=== PATIENT | female | born 1950 | race Caucasian/White ===

== ENCOUNTER 2023-12-19 16:25 | Emergency (ER) | payer OTHER, SELFPAY ==
[2023-12-19] VITALS (18 sets, daily range): BP systolic 152–202; BP diastolic 71–98; PULSE 86–116; RESP 12–20; TEMP 37; O2SAT 97–100; BMI 17.6
--- NOTE | 2023-12-19 16:39 | DI.CT.S_ITS ---
PROCEDURE: CT TRAUMA CHEST ABDOMEN PELVIS INDICATIONS: Trauma, pain Chest: Cardiovascular: Heart size is normal. No evidence of pulmonary embolism, aortic aneurysm or dissection. Lungs and pleural spaces: Right middle lobe mass lesion measures 2.0 x 0.8 cm. Biapical pulmonary scarring. Lymph nodes: No mediastinal, hilar or axillary adenopathy. Mediastinum: Unremarkable. No hiatal hernia. Thyroid within normal limits. Chest Wall and Bones: T4 wedge-shaped compression fracture with 10 percent anterior height loss. No retropulsed fracture fragment Abdomen and Pelvis: Liver: Normal in size and attenuation. No contour deformity present. Biliary system: No calcified cholelithiasis or pericholecystic inflammation. No intra or extrahepatic bile duct dilatation. Pancreas: Unremarkable without mass or inflammation evident. Spleen: Normal in size and density. Adrenals: Normal morphology and density. Reproductive system: Unremarkable as visualized. Urinary system: Normal renal size and attenuation. No renal calculi, hydronephrosis, or solid mass present. Urinary bladder unremarkable. Gastrointestinal system: The bowel is unremarkable with no evidence of bowel obstruction or inflammation. The stomach appears unremarkable. Large fecal bolus in the rectum Appendix: No findings to suggest acute appendicitis. Lymph nodes: No mesenteric or retroperitoneal adenopathy. Peritoneal spaces: No free air. No free fluid. Vasculature: The IVC, aorta and iliac vasculature are unremarkable. Abdominal wall: Abdominal wall intact without evidence of ventral or inguinal hernias. Musculoskeletal: Normal bone mineralization. No acute fractures. IMPRESSION: 1. T4 wedge-shaped compression fracture, uncertain age. 2. Incidental right middle lobe 2 cm nodule. Consider 3 month follow-up and/or PET-CT 3. No evidence of fracture or visceral injury in the abdomen or pelvis. Approved by: Canelo Beard M.D. on 12/19/2023 at 17:02
--- NOTE | 2023-12-19 16:40 | DI.CT.S_ITS ---
PROCEDURE: CT CERVICAL SPINE WO CON INDICATIONS: fall with head injury TECHNIQUE: Noncontrast 3 mm thick sections acquired from the skull base to the T4 level. Sagittal and coronal reformats were then constructed. For radiation dose reduction, the following was used: automated exposure control, adjustment of mA and/or kV according to patient size. COMPARISON: None. FINDINGS: Image quality: Excellent. Bones: No fractures or dislocations. Visualized superior ribs are intact. Soft tissues: Prevertebral soft tissues are normal in thickness. No paravertebral hematomas. No apical pneumothoraces. IMPRESSION: No displaced fracture or traumatic subluxation. Approved by: Canelo Beard M.D. on 12/19/2023 at 17:15
--- NOTE | 2023-12-19 16:40 | DI.CT.S_ITS ---
PROCEDURE: CT HEAD/BRAIN WO CON INDICATIONS: fall hit head TECHNIQUE: Noncontrast 4.5 mm thick angled axial sections acquired from the foramen magnum to the vertex, with coronal and sagittal reformats. For radiation dose reduction, the following was used: automated exposure control, adjustment of mA and/or kV according to patient size. COMPARISON: None. FINDINGS: Image quality: Diagnostic. CSF spaces: Basal cisterns are patent. No extra-axial fluid collections. Ventricles are normal in size and shape. Brain: No midline shift. No intracranial masses or hemorrhage. Damon-white matter interface is normal. Atrophy and multifocal white matter chronic ischemic change Skull and face: Calvarium and visualized facial bones are intact, without suspicious lesions. Sinuses: Visualized sinuses and mastoids are clear. IMPRESSION: No acute intracranial pathology. Approved by: Canelo Beard M.D. on 12/19/2023 at 17:07
[2023-12-19 16:52] LABS: Add Manual Diff / Slide Review NO; Basophils Absolute Auto 0 /uL (0-100); Basophils Percent Auto 0.7 % (0-2); Eosinophils Absolute Auto 100 /uL (0-450); Hematocrit 41.7 % (36-46); Lymphocytes Absolute Auto 1100 /uL (1100-4500); Lymphocytes Percent Auto 21.9 % (25-40); Mean Corpuscular HGB Conc 33.5 % (30-36); Mean Corpuscular Hemoglobin 30.6 PG (26-34); Mean Corpuscular Volume 91.3 fL (80-100); Monocytes Absolute Auto 800 /uL (0-900); Monocytes Percent Auto 15.5 % (3-14); Neutrophils Absolute Auto 3100 /uL (1500-7000); Neutrophils Percent Auto 60.9 % (50-75); Platelet Count 278 X10^3/uL (150-400); Red Blood Cell Count 4.57 X10^6/uL (4.0-5.2); Red Cell Distribution Width 12.9 % (11.6-14.8); White Blood Cell Count 5.2 X10^3/uL (4.5-11.0)
--- NOTE | 2023-12-19 17:03 | ED_ITS ---
HPI - General Adult <Kal Griffin DO - Last Filed: 12/20/23 06:57> General Chief complaint: Trauma Stated complaint: Fall, Head/Back injury Time Seen by Provider: 12/19/23 16:38 Source: patient Mode of arrival: Ambulatory Limitations: no limitations History of Present Illness HPI narrative: Patient is a 73-year-old female. Not on blood thinners. Arrived by private vehicle for evaluation injuries sustained when she fell. She states she was trying to take a picture. Was leaning forward when she lost her balance. Fell backwards. Did hit her head, neck, upper back. Did not lose consciousness. Fell greater than 6 ft. No lower extremity injuries. No pelvis injuries. No upper extremity injuries although she is having some left upper shoulder pain. Is having chest pain with deep inspiration. Related Data Allergies Allergy/AdvReac Type Severity Reaction Status Date / Time Sulfa (Sulfonamide Allergy Rash Verified 12/19/23 16:35 Antibiotics) Review of Systems <Kal Griffin DO - Last Filed: 12/20/23 06:57> Review of Systems ROS Unobtainable: All systems reviewed & are unremarkable except as noted in HPI and below Exam <Kal Griffin DO - Last Filed: 12/20/23 06:57> Initial Vital Signs Initial Vital Signs: Vital Signs Temperature 98.6 F 12/19/23 16:29 Pulse Rate 116 H 12/19/23 16:29 Respiratory Rate 18 12/19/23 16:29 Blood Pressure 181/87 H 12/19/23 16:29 Pulse Oximetry 98 12/19/23 16:29 Oxygen Delivery Method Room Air 12/19/23 16:29 Const General: cooperative and No ill appearing Resp Effort & Inspection: normal respiratory effort Auscultation: clear to auscultation bilaterally Cardio Rate: regular rate Rhythm: regular rhythm GI Inspection: normal to inspection and non-distended Palpation: soft and No tender Back/Spine/Pelvis Cervical Spine: cervical spinal tenderness Thoracic/Lumbar Spine: thoracic spinal tenderness Skin Other: Skin abrasions over left shoulder. Scalp abrasion. Neuro General: patient alert, patient awake, patient oriented x3 and moves all extremities Extrem Other: No gross deformities. Moves all 4 extremities. Has some discomfort with movement of the left shoulder because of some left-sided paraspinal cervical tenderness. Pelvis is stable. <Tyler Kenyon MD - Last Filed: 12/21/23 12:36> Initial Vital Signs Initial Vital Signs: Vital Signs Temperature 98.6 F 12/19/23 16:29 Pulse Rate 116 H 12/19/23 16:29 Respiratory Rate 18 12/19/23 16:29 Blood Pressure 181/87 H 12/19/23 16:29 Pulse Oximetry 98 12/19/23 16:29 Oxygen Delivery Method Room Air 12/19/23 16:29 Scores <Kal Griffin DO - Last Filed: 12/20/23 06:57> [place] CT Head Rule Age <16 years old: No Patient on blood thinners: No Seizure after injury: No Exclusion: Patient NOT Excluded, Proceed to next steps GCS < 15 at 2 hr post trauma: No Suspected open or depressed skull fracture: No Any sign of basilar skull fracture (hemotympanum, raccoon eyes, Stepehns's sign, CSF gabriella-/rhinorrhea): No Two or more episodes of vomiting: No Age greater or equal to 65 years: Yes Retrograde amnesia to the event greater or equal to 30 min: No Dangerous Mechanism (pedestrian vs. mv, occupant ejected from mv, fall from >3 ft or > 5 stairs): Yes Recommendation: Consider CT. The [place] Head CT Rule cannot rule out need for Imaging. GCS Scarlett coma scale eye opening: Spontaneous [place] coma scale verbal response: Orientated [place] coma scale motor response: Obey commands [place] coma scale total score: 15 Nexus Score for C-Spine Focal Neurologic deficit present: No Midline spinal tenderness present: Yes Altered level of conciousness present: No Intoxication present: No Distracting Injury Present: No Nexus Criteria for C-spine: 1 <Tyler Kenyon MD - Last Filed: 12/21/23 12:36> [place] CT Head Rule Exclusion: Patient NOT Excluded, Proceed to next steps Recommendation: Consider CT. The [place] Head CT Rule cannot rule out need for Imaging. GCS [place] coma scale total score: 15 Nexus Score for C-Spine Nexus Criteria for C-spine: 1 Course <Kal Griffin DO - Last Filed: 12/20/23 06:57> Orders Ordered: ED Orders 12/19/23 16:39 CT Trauma Chest Abdomen Pelvis Stat 12/19/23 16:40 CT cervical spine wo con Stat CT head/brain wo con Stat 12/19/23 16:46 Complete Blood Count AUTO DIFF Stat Comprehensive Metabolic Panel Stat Lipase Stat 12/19/23 18:00 Urine Microscopic Stat Vital Signs Vital signs: Vital Signs - 8 hr 12/19/23 16:29 12/19/23 16:39 12/19/23 16:39 Temperature 98.6 F Temperature [1639] 98.6 F Pulse Rate 116 H 116 H Pulse Rate [1639] 97 H Respiratory Rate 18 Respiratory Rate [1639] 20 Blood Pressure 181/87 H Blood Pressure [1639] 172/81 H Pulse Oximetry 98 99 Pulse Oximetry [1639] 98 Oxygen Delivery Method Room Air Oxygen Delivery Method [1639] Room Air 12/19/23 16:40 12/19/23 16:40 12/19/23 16:46 Temperature Temperature [1639] Pulse Rate 113 H Pulse Rate [1639] Respiratory Rate 14 Respiratory Rate [1639] Blood Pressure 194/98 H 202/95 H Blood Pressure [1639] Pulse Oximetry 99 Pulse Oximetry [1639] Oxygen Delivery Method Oxygen Delivery Method [1639] 12/19/23 16:46 12/19/23 16:50 12/19/23 16:50 Temperature Temperature [1639] Pulse Rate 102 H 100 H Pulse Rate [1639] Respiratory Rate 18 Respiratory Rate [1639] Blood Pressure 172/81 H Blood Pressure [1639] Pulse Oximetry 100 98 Pulse Oximetry [1639] Oxygen Delivery Method Oxygen Delivery Method [1639] 12/19/23 16:55 12/19/23 16:55 12/19/23 17:14 Temperature Temperature [1639] Pulse Rate 102 H 107 H Pulse Rate [1639] Respiratory Rate Respiratory Rate [1639] Blood Pressure 178/86 H Blood Pressure [1639] Pulse Oximetry 99 Pulse Oximetry [1639] Oxygen Delivery Method Oxygen Delivery Method [1639] 12/19/23 17:17 12/19/23 17:17 12/19/23 17:20 Temperature Temperature [1639] Pulse Rate 105 H Pulse Rate [1639] Respiratory Rate 13 Respiratory Rate [1639] Blood Pressure 164/79 H 169/80 H Blood Pressure [1639] Pulse Oximetry 100 Pulse Oximetry [1639] Oxygen Delivery Method Oxygen Delivery Method [1639] 12/19/23 17:20 12/19/23 17:30 12/19/23 17:30 Temperature Temperature [1639] Pulse Rate 102 H 96 H Pulse Rate [1639] Respiratory Rate 12 14 Respiratory Rate [1639] Blood Pressure 156/71 H Blood Pressure [1639] Pulse Oximetry 99 97 Pulse Oximetry [1639] Oxygen Delivery Method Oxygen Delivery Method [1639] 12/19/23 18:00 12/19/23 18:00 12/19/23 18:30 Temperature Temperature [1639] Pulse Rate 92 H 90 Pulse Rate [1639] Respiratory Rate 17 18 Respiratory Rate [1639] Blood Pressure 152/78 H Blood Pressure [1639] Pulse Oximetry 98 98 Pulse Oximetry [1639] Oxygen Delivery Method Oxygen Delivery Method [1639] 12/19/23 18:30 12/19/23 19:13 12/19/23 19:17 Temperature Temperature [1639] Pulse Rate 94 H 95 H Pulse Rate [1639] Respiratory Rate Respiratory Rate [1639] Blood Pressure 158/75 H Blood Pressure [1639] Pulse Oximetry 98 100 Pulse Oximetry [1639] Oxygen Delivery Method Oxygen Delivery Method [1639] 12/19/23 19:18 Temperature Temperature [1639] Pulse Rate Pulse Rate [1639] Respiratory Rate Respiratory Rate [1639] Blood Pressure 194/91 H Blood Pressure [1639] Pulse Oximetry Pulse Oximetry [1639] Oxygen Delivery Method Oxygen Delivery Method [1639] <Tyler Kenyon MD - Last Filed: 12/21/23 12:36> Orders Ordered: ED Orders 12/19/23 16:39 CT Trauma Chest Abdomen Pelvis Stat 12/19/23 16:40 CT cervical spine wo con Stat CT head/brain wo con Stat 12/19/23 16:46 Complete Blood Count AUTO DIFF Stat Comprehensive Metabolic Panel Stat Lipase Stat 12/19/23 18:00 Urine Microscopic Stat Vital Signs Vital signs: Vital Signs - 8 hr 12/19/23 16:29 12/19/23 16:39 12/19/23 16:39 Temperature 98.6 F Temperature [1639] 98.6 F Pulse Rate 116 H 116 H Pulse Rate [1639] 97 H Respiratory Rate 18 Respiratory Rate [1639] 20 Blood Pressure 181/87 H Blood Pressure [1639] 172/81 H Pulse Oximetry 98 99 Pulse Oximetry [1639] 98 Oxygen Delivery Method Room Air Oxygen Delivery Method [1639] Room Air 12/19/23 16:40 12/19/23 16:40 12/19/23 16:46 Temperature Temperature [1639] Pulse Rate 113 H Pulse Rate [1639] Respiratory Rate 14 Respiratory Rate [1639] Blood Pressure 194/98 H 202/95 H Blood Pressure [1639] Pulse Oximetry 99 Pulse Oximetry [1639] Oxygen Delivery Method Oxygen Delivery Method [1639] 12/19/23 16:46 12/19/23 16:50 12/19/23 16:50 Temperature Temperature [1639] Pulse Rate 102 H 100 H Pulse Rate [1639] Respiratory Rate 18 Respiratory Rate [1639] Blood Pressure 172/81 H Blood Pressure [1639] Pulse Oximetry 100 98 Pulse Oximetry [1639] Oxygen Delivery Method Oxygen Delivery Method [1639] 12/19/23 16:55 12/19/23 16:55 12/19/23 17:14 Temperature Temperature [1639] Pulse Rate 102 H 107 H Pulse Rate [1639] Respiratory Rate Respiratory Rate [1639] Blood Pressure 178/86 H Blood Pressure [1639] Pulse Oximetry 99 Pulse Oximetry [1639] Oxygen Delivery Method Oxygen Delivery Method [1639] 12/19/23 17:17 12/19/23 17:17 12/19/23 17:20 Temperature Temperature [1639] Pulse Rate 105 H Pulse Rate [1639] Respiratory Rate 13 Respiratory Rate [1639] Blood Pressure 164/79 H 169/80 H Blood Pressure [1639] Pulse Oximetry 100 Pulse Oximetry [1639] Oxygen Delivery Method Oxygen Delivery Method [1639] 12/19/23 17:20 12/19/23 17:30 12/19/23 17:30 Temperature Temperature [1639] Pulse Rate 102 H 96 H Pulse Rate [1639] Respiratory Rate 12 14 Respiratory Rate [1639] Blood Pressure 156/71 H Blood Pressure [1639] Pulse Oximetry 99 97 Pulse Oximetry [1639] Oxygen Delivery Method Oxygen Delivery Method [1639] 12/19/23 18:00 12/19/23 18:00 12/19/23 18:30 Temperature Temperature [1639] Pulse Rate 92 H 90 Pulse Rate [1639] Respiratory Rate 17 18 Respiratory Rate [1639] Blood Pressure 152/78 H Blood Pressure [1639] Pulse Oximetry 98 98 Pulse Oximetry [1639] Oxygen Delivery Method Oxygen Delivery Method [1639] 12/19/23 18:30 12/19/23 19:13 12/19/23 19:17 Temperature Temperature [1639] Pulse Rate 94 H 95 H Pulse Rate [1639] Respiratory Rate Respiratory Rate [1639] Blood Pressure 158/75 H Blood Pressure [1639] Pulse Oximetry 98 100 Pulse Oximetry [1639] Oxygen Delivery Method Oxygen Delivery Method [1639] 12/19/23 19:18 Temperature Temperature [1639] Pulse Rate Pulse Rate [1639] Respiratory Rate Respiratory Rate [1639] Blood Pressure 194/91 H Blood Pressure [1639] Pulse Oximetry Pulse Oximetry [1639] Oxygen Delivery Method Oxygen Delivery Method [1639] Medical Decision Making <Kal Griffin, DO - Last Filed: 12/20/23 06:57> Lab Data Lab results reviewed: Yes I reviewed the patient's lab results. 12/19/23 16:46 12/19/23 16:46 Labs: Lab Results 12/19/23 12/19/23 Range/Units 16:46 18:00 WBC 5.2 (4.5-11.0) X10^3/uL RBC 4.57 (4.0-5.2) X10^6/uL Hgb 14.0 (12.0-16.0) g/dL Hct 41.7 (36-46) % MCV 91.3 (80-100) fL MCH 30.6 (26-34) PG MCHC 33.5 (30-36) % RDW 12.9 (11.6-14.8) % Plt Count 278 (150-400) X10^3/uL Neut % (Auto) 60.9 (50-75) % Lymph % (Auto) 21.9 L (25-40) % [place] % (Auto) 15.5 H (3-14) % Eos % (Auto) 1.0 L (2-4) % Baso % (Auto) 0.7 (0-2) % Neut # (Auto) 3100 (2124-9048) /uL Lymph # (Auto) 1100 (0282-9628) /uL [place] # (Auto) 800 (0-900) /uL Eos # (Auto) 100 (0-450) /uL Baso # (Auto) 0 (0-100) /uL Sodium 139 (137-145) mmol/L Potassium 3.8 (3.4-5.1) mmol/L Chloride 106 (98-107) mmol/L Carbon Dioxide 28 (22-32) mmol/L BUN 37 H (7-17) mg/dL Creatinine 0.68 (0.52-1.04) mg/dL Estimated GFR > 60 (>60) mL/min BUN/Creatinine Ratio 54.4 H (6-22) Glucose 130 H (80-110) mg/dL Calcium 9.3 (8.4-10.2) mg/dL Total Bilirubin 0.4 (0.2-1.3) mg/dL AST 72 H (14-36) IU/L ALT 55 H (<35) IU/L Alkaline Phosphatase 73 (38-126) U/L Total Protein 7.7 (6.3-8.2) g/dL Albumin 4.6 (3.5-5.0) g/dL Globulin 3.1 (1.7-4.1) g/dL Albumin/Globulin Ratio 1.5 (1.0-2.8) Lipase 179 (23-300) U/L Urine RBC 0-1/hpf (0-5/HPF) Urine WBC 0-1/hpf (0-5/HPF) Ur Squamous Epith Cells 0-1 /hpf (0-5/HPF) Urine Bacteria Occasional (0-1) (None) Ur Culture Indicated? Cult not indicated Vol Urine Centrifuged 10ml (spun) Urine Dip Bedside Urine Glucose Negative Bedside Urine Bilirubin - Negative Bedside Urine Ketone - Negative Urine Specific [place] 1.005 Bedside Urine Occult Blood +/- Bedside Urine pH 7.5 Bedside Urine Protein - Negative Bedside Urine Urobilinogen - Negative Bedside Urine Nitrite - Negative Bedside Urine Leukocytes - Negative Esterase Point of care testing: Urine Dip Bedside Urine Glucose Negative Bedside Urine Bilirubin - Negative Bedside Urine Ketone - Negative Urine Specific [place] 1.005 Bedside Urine Occult Blood +/- Bedside Urine pH 7.5 Bedside Urine Protein - Negative Bedside Urine Urobilinogen - Negative Bedside Urine Nitrite - Negative Bedside Urine Leukocytes - Negative Esterase Imaging Data CT chest/abd/pelvis: Radiologist's Impression: PROCEDURE: CT TRAUMA CHEST ABDOMEN PELVIS INDICATIONS: Trauma, pain Chest: Cardiovascular: Heart size is normal. No evidence of pulmonary embolism, aortic aneurysm or dissection. Lungs and pleural spaces: Right middle lobe mass lesion measures 2.0 x 0.8 cm. Biapical pulmonary scarring. Lymph nodes: No mediastinal, hilar or axillary adenopathy. Mediastinum: Unremarkable. No hiatal hernia. Thyroid within normal limits. Chest Wall and Bones: T4 wedge-shaped compression fracture with 10 percent anterior height loss. No retropulsed fracture fragment Abdomen and Pelvis: Liver: Normal in size and attenuation. No contour deformity present. Biliary system: No calcified cholelithiasis or pericholecystic inflammation. No intra or extrahepatic bile duct dilatation. Pancreas: Unremarkable without mass or inflammation evident. Spleen: Normal in size and density. Adrenals: Normal morphology and density. Reproductive system: Unremarkable as visualized. Urinary system: Normal renal size and attenuation. No renal calculi, hydronephrosis, or solid mass present. Urinary bladder unremarkable. Gastrointestinal system: The bowel is unremarkable with no evidence of bowel obstruction or inflammation. The stomach appears unremarkable. Large fecal bolus in the rectum Appendix: No findings to suggest acute appendicitis. Lymph nodes: No mesenteric or retroperitoneal adenopathy. Peritoneal spaces: No free air. No free fluid. Vasculature: The IVC, aorta and iliac vasculature are unremarkable. Abdominal wall: Abdominal wall intact without evidence of ventral or inguinal hernias. Musculoskeletal: Normal bone mineralization. No acute fractures. IMPRESSION: 1. T4 wedge-shaped compression fracture, uncertain age. 2. Incidental right middle lobe 2 cm nodule. Consider 3 month follow-up and/or PET-CT 3. No evidence of fracture or visceral injury in the abdomen or pelvis. CT scan - head: Radiologist's Impression: PROCEDURE: CT HEAD/BRAIN WO CON INDICATIONS: fall hit head TECHNIQUE: Noncontrast 4.5 mm thick angled axial sections acquired from the foramen magnum to the vertex, with coronal and sagittal reformats. For radiation dose reduction, the following was used: automated exposure control, adjustment of mA and/or kV according to patient size. COMPARISON: None. FINDINGS: Image quality: Diagnostic. CSF spaces: Basal cisterns are patent. No extra-axial fluid collections. Ventricles are normal in size and shape. Brain: No midline shift. No intracranial masses or hemorrhage. Damon-white matter interface is normal. Atrophy and multifocal white matter chronic ischemic change Skull and face: Calvarium and visualized facial bones are intact, without suspicious lesions. Sinuses: Visualized sinuses and mastoids are clear. IMPRESSION: No acute intracranial pathology. CT - cervical spine: Radiologist's Impression: PROCEDURE: CT CERVICAL SPINE WO CON INDICATIONS: fall with head injury TECHNIQUE: Noncontrast 3 mm thick sections acquired from the skull base to the T4 level. Sagittal and coronal reformats were then constructed. For radiation dose reduction, the following was used: automated exposure control, adjustment of mA and/or kV according to patient size. COMPARISON: None. FINDINGS: Image quality: Excellent. Bones: No fractures or dislocations. Visualized superior ribs are intact. Soft tissues: Prevertebral soft tissues are normal in thickness. No paravertebral hematomas. No apical pneumothoraces. IMPRESSION: No displaced fracture or traumatic subluxation. <Tyler Kenyon MD - Last Filed: 12/21/23 12:36> Lab Data Labs: Lab Results 12/19/23 12/19/23 Range/Units 16:46 18:00 WBC 5.2 (4.5-11.0) X10^3/uL RBC 4.57 (4.0-5.2) X10^6/uL Hgb 14.0 (12.0-16.0) g/dL Hct 41.7 (36-46) % MCV 91.3 (80-100) fL MCH 30.6 (26-34) PG MCHC 33.5 (30-36) % RDW 12.9 (11.6-14.8) % Plt Count 278 (150-400) X10^3/uL Neut % (Auto) 60.9 (50-75) % Lymph % (Auto) 21.9 L (25-40) % [place] % (Auto) 15.5 H (3-14) % Eos % (Auto) 1.0 L (2-4) % Baso % (Auto) 0.7 (0-2) % Neut # (Auto) 3100 (1931-9513) /uL Lymph # (Auto) 1100 (2542-6441) /uL [place] # (Auto) 800 (0-900) /uL Eos # (Auto) 100 (0-450) /uL Baso # (Auto) 0 (0-100) /uL Sodium 139 (137-145) mmol/L Potassium 3.8 (3.4-5.1) mmol/L Chloride 106 (98-107) mmol/L Carbon Dioxide 28 (22-32) mmol/L BUN 37 H (7-17) mg/dL Creatinine 0.68 (0.52-1.04) mg/dL Estimated GFR > 60 (>60) mL/min BUN/Creatinine Ratio 54.4 H (6-22) Glucose 130 H (80-110) mg/dL Calcium 9.3 (8.4-10.2) mg/dL Total Bilirubin 0.4 (0.2-1.3) mg/dL AST 72 H (14-36) IU/L ALT 55 H (<35) IU/L Alkaline Phosphatase 73 (38-126) U/L Total Protein 7.7 (6.3-8.2) g/dL Albumin 4.6 (3.5-5.0) g/dL Globulin 3.1 (1.7-4.1) g/dL Albumin/Globulin Ratio 1.5 (1.0-2.8) Lipase 179 (23-300) U/L Urine RBC 0-1/hpf (0-5/HPF) Urine WBC 0-1/hpf (0-5/HPF) Ur Squamous Epith Cells 0-1 /hpf (0-5/HPF) Urine Bacteria Occasional (0-1) (None) Ur Culture Indicated? Cult not indicated Vol Urine Centrifuged 10ml (spun) Urine Dip Bedside Urine Glucose Negative Bedside Urine Bilirubin - Negative Bedside Urine Ketone - Negative Urine Specific [place] 1.005 Bedside Urine Occult Blood +/- Bedside Urine pH 7.5 Bedside Urine Protein - Negative Bedside Urine Urobilinogen - Negative Bedside Urine Nitrite - Negative Bedside Urine Leukocytes - Negative Esterase Point of care testing: Urine Dip Bedside Urine Glucose Negative Bedside Urine Bilirubin - Negative Bedside Urine Ketone - Negative Urine Specific [place] 1.005 Bedside Urine Occult Blood +/- Bedside Urine pH 7.5 Bedside Urine Protein - Negative Bedside Urine Urobilinogen - Negative Bedside Urine Nitrite - Negative Bedside Urine Leukocytes - Negative Esterase [facility] Narrative Medical decision making narrative: Kostas, 12/19/2023 at 6:20 p.m.. Sign-out from Dr. Griffin. CT cervical spine study pending. 73-year-old female had fall from approximately 6 ft in the [place] area, having inspiratory chest pain. CT head negative, CT chest negative for trauma but showed [address] abdomen and pelvis imaging showed no acute changes. CT thoracic spine showed age-indeterminate T4 wedge compression fracture without significant loss of height or any retropulsion changes. Remaining study CT cervical spine still pending at this time. Assumed care CT cervical spine shows no acute changes. CT chest abdomen and pelvis showed indeterminate age T4 wedge shaped compression fracture, and a right middle lobe 2 cm nodule, outpatient follow up advised regarding the 2cm lung nodule. CT head showed no acute changes. Copies of these reports were given to the patient Patient out of cervical collar feels better, moving neck well, was able to take oral fluids, was able to ambulate to the bathroom without difficulty. Family is here to take her back to her [facility]. Follow up advice with her PCP and [facility] earlier this week. Improved, discharged home with family Discharge Plan Departure Patient Disposition: Home Clinical Impression: Incidental pulmonary nodule Closed wedge compression fracture of T4 vertebra Qualifiers: Encounter type: initial encounter Qualified Code(s): S22.040A - Wedge compression fracture of fourth thoracic vertebra, initial encounter for closed fracture Chest wall contusion Qualifiers: Encounter type: initial encounter Laterality: left Qualified Code(s): S20.212A - Contusion of left front wall of thorax, initial encounter Cervical muscle strain Qualifiers: Encounter type: initial encounter Qualified Code(s): S16.1XXA - Strain of muscle, fascia and tendon at neck level, initial encounter Instructions: DI for Trauma Activity Restrictions/Additional Instructions: Fall, left sided lower chest discomfort, upper left neck pain. CT scan head showed no acute changes. CT scanning of the cervical spine showed no acute changes. CT chest abdomen and pelvis imaging was also performed, which showed no acute injury pattern for sure. There was an age indeterminate T4 spine wedge-shaped compression fracture, not necessarily new. Incidentally also noted in the right middle lobe of the lung was a 2 cm nodule that should have further follow up as an outpatient. To make sure that it is not a cancerous problem. No acute changes in that region. You were able to take oral fluids, you felt better out of the cervical collar, and were able to ambulate to the bathroom. You declined any pain medications for now, consider use of Tylenol as needed for discomfort. Home with family. Follow up with your regular provider early next week to review symptoms and further follow up for above findings. Referrals: Miscellaneous,Doctor, [Primary Care Provider] - Stand Alone Forms: Patient Portal/API
[2023-12-19 17:04] LABS: Alanine Aminotransferase 55 IU/L (<35); Albumin 4.6 g/dL (3.5-5.0); Albumin Globulin Ratio 1.5 (1.0-2.8); Alkaline Phosphatase 73 U/L (38-126); Aspartate Aminotransferase 72 IU/L (14-36); BUN Creatinine Ratio 54.4 (6-22); Bilirubin Total 0.4 mg/dL (0.2-1.3); Blood Urea Nitrogen 37 mg/dL (7-17); Calcium 9.3 mg/dL (8.4-10.2); Carbon Dioxide 28 mmol/L (22-32); Chloride 106 mmol/L (98-107); Estimated Glomerular Filt Rate > 60 mL/min (>60); Globulin 3.1 g/dL (1.7-4.1); Glucose 130 mg/dL (80-110); HEMOLYSIS < 15 (0-50); Lipase 179 U/L (23-300); Potassium 3.8 mmol/L (3.4-5.1); Sodium 139 mmol/L (137-145); Total Protein 7.7 g/dL (6.3-8.2)
[2023-12-19 18:20] LABS: Bacteria Urine Occasional (0-1); Culture Indicated Urine Cult Not Indicated; RBC Urine 0-1/HPF (0-5/HPF); Squamous Epithelial Cell Urine 0-1 /HPF (0-5/HPF); Urine Volume 10mL (spun); WBC Urine 0-1/HPF (0-5/HPF)
--- NOTE | 2023-12-19 19:20 | PC.NURSE ---
Assumed pt care at this time. Head has small lump back left side, no visible open wound more superficial with dried blood. Left should wound abrasion no active bleeding with multiple scrape that cover left should back of left neck area. Pt pain is mostly on the left side and neck. Family showed picture of what type of alfonso pt rolled down hill into (hoang alfonso).
== END 2023-12-19 20:32 | disposition home or self-care (01) ==
PROVIDERS: Emergency Medicine; Emergency Provider Emergency Medicine
DX: S22.040A Wedge compression fracture of fourth thoracic vertebra, initial encounter for closed fracture (principal); S20.212A Contusion of left front wall of thorax, initial encounter; S16.1XXA Strain of muscle, fascia and tendon at neck level, initial encounter; S40.212A Abrasion of left shoulder, initial encounter; R07.9 Chest pain, unspecified; R91.1 Solitary pulmonary nodule; W17.89XA Other fall from one level to another, initial encounter; Y92.830 Public park as the place of occurrence of the external cause
CPT/HCPCS: 70450; 71275; 72125; 74177; 80053; 81003; 81015; 83690; 85025; 99284; 99285; Q9967